=== PATIENT | female | born 1940 | race Caucasian/White ===

== ENCOUNTER 2021-08-22 21:14 | Emergency (ER) | payer MEDICARE, OTHER ==
[~2021-08-22 21:14] MED LIST: ADULT ASPIRIN R81 MG PO; DIOVAN HCT 1601 EAC1 PO; ELIQUIS2.5 MG PO; ISOSORBIDE DINI20 M1 PO; LOPRESSOR25 MG PO; NORVASC2.5 MG PO; NORVASC5 MG PO; PREDNISONE 20MG20 MG PO; PROTONIX 40MG T40 MG PO; SYNTHROID100 MCG PO; TENORMIN50 MG PO
[2021-08-22 21:38] LABS: BASOPHIL 0.4 % (0-2); EOSINOPHIL 0.7 % (0-7); HCT 41.4 % (37.0-47.0); HGB 12.9 g/dl (12.5-16.0); LYMPHOCYTE 25.2 % (15-48); MCH 26.3 pg (25.0-31.0); MCHC 31.2 g/dL (32.0-36.0); MCV 84.5 fL (78.0-100.0); MONOCYTE 8.2 % (0-12); MPV 11.4 fL (6.0-9.5); NEUTROPHIL 65.2 % (41-80); NRBC 0; PLT 215 K/uL (150-400); RDW 14.5 % (11.5-14.0); WBC 10.9 K/uL (4.0-10.5)
[2021-08-22 21:56] LABS: BILIRUBIN - TOTAL 1.3 mg/dL (0.2-1.0); BUN/CREAT RATIO (CALC) 23.3 RATIO; CREATININE 1.2 mg/dL (0.51-0.95); GLOBULIN (CALCULATION) 3.8 g/dL; POTASSIUM 4.1 mmol/L (3.5-5.1); TOTAL PROTEIN 7.8 g/dL (6.4-8.2)
== END 2021-08-23 01:21 | disposition home or self-care (01) ==
LOC: FER 21:14
PROVIDERS: Emergency Medicine
DX: K21.9 Gastro-esophageal reflux disease without esophagitis (principal); R07.89 Other chest pain; I10 Essential (primary) hypertension; Z88.0 Allergy status to penicillin; Z88.2 Allergy status to sulfonamides; Z91.048 Other nonmedicinal substance allergy status
CPT/HCPCS: 36415; 71045; 80053; 83735; 84484; 85025; 93005

== ENCOUNTER 2021-11-27 12:50 | Emergency (ER) | payer MEDICARE, OTHER ==
[2021-11-27] MEDS ORDERED: NORCO 5-325 TA1 EACH PO (16:43)
[2021-11-27] MEDS ORDERED: ONDANSETRON ODT4 MG PO (16:59)
== END 2021-11-27 17:14 | disposition home or self-care (01) ==
LOC: FER 12:50
DX: S22.089A Unspecified fracture of T11-T12 vertebra, initial encounter for closed fracture (principal); S00.03XA Contusion of scalp, initial encounter; Z88.0 Allergy status to penicillin; Z88.2 Allergy status to sulfonamides; W01.198A Fall on same level from slipping, tripping and stumbling with subsequent striking against other object, initial encounter
CPT/HCPCS: 70450; 72125; 72128; 72131

== ENCOUNTER 2021-11-30 16:43 | Emergency (ER) | payer MEDICARE, OTHER ==
[~2021-11-30 16:43] MED LIST changes: +NORCO 5-325 TA1 EACH PO; +ONDANSETRON ODT4 MG PO
[2021-11-30 17:32] LABS: BASOPHIL 0.3 % (0-2); EOSINOPHIL 0.5 % (0-7); HCT 42.6 % (37.0-47.0); HGB 13.7 g/dl (12.5-16.0); LYMPHOCYTE 16.4 % (15-48); MCH 27.3 pg (25.0-31.0); MCHC 32.2 g/dL (32.0-36.0); MCV 84.9 fL (78.0-100.0); MONOCYTE 9.6 % (0-12); MPV 12.3 fL (6.0-9.5); NEUTROPHIL 72.3 % (41-80); NRBC 0; PLT 220 K/uL (150-400); RBC 5.02 M/uL (4.20-5.40); RDW 13.3 % (11.5-14.0)
[2021-11-30 17:37] LABS: INR 1.29 (0.9-1.2); PROTHROMBIN TIME 15.4 SECONDS (11.8-13.4); PTT 36.5 SECONDS (24.4-34.7)
[2021-11-30 17:51] LABS: LACTIC ACID 1.6 mmol/L (0.4-1.9)
[2021-11-30 17:55] LABS: ALBUMIN 3.7 g/dL (3.4-5.0); BILIRUBIN - TOTAL 0.7 mg/dL (0.2-1.0); CREATININE 0.92 mg/dL (0.51-0.95); FT4 (FREE T4) 1.2 ng/dL (0.76-1.46); GLOBULIN (CALCULATION) 4.1 g/dL; MAGNESIUM 1.9 mg/dL (1.8-2.4); POTASSIUM 3.7 mmol/L (3.5-5.1); TOTAL PROTEIN 7.8 g/dL (6.4-8.2)
== END 2021-11-30 19:42 | disposition home or self-care (01) ==
LOC: FER 16:43
PROVIDERS: Emergency Medicine
DX: I48.0 Paroxysmal atrial fibrillation (principal); Z20.822 Contact with and (suspected) exposure to COVID-19; Z88.0 Allergy status to penicillin; Z88.2 Allergy status to sulfonamides
CPT/HCPCS: 36415; 71045; 80053; 83605; 83735; 83880; 84439; 84443; 84484; 85025; 85610; 85730; 93005; U0002

== ENCOUNTER 2022-03-07 15:57 | Emergency (ER) | payer MEDICARE, OTHER ==
[2022-03-07 16:56] LABS: BASOPHIL 0.5 % (0-2); EOSINOPHIL 1.6 % (0-7); HCT 40.5 % (37.0-47.0); HGB 12.7 g/dl (12.5-16.0); LYMPHOCYTE 27.4 % (15-48); MCH 27.2 pg (25.0-31.0); MCHC 31.4 g/dL (32.0-36.0); MCV 86.7 fL (78.0-100.0); MONOCYTE 9.8 % (0-12); MPV 11.4 fL (6.0-9.5); NEUTROPHIL 60.3 % (41-80); NRBC 0; PLT 205 K/uL (150-400); RBC 4.67 M/uL (4.20-5.40); RDW 13.6 % (11.5-14.0); WBC 10.5 K/uL (4.0-10.5)
[2022-03-07 17:22] LABS: ALBUMIN 3.8 g/dL (3.4-5.0); BILIRUBIN - TOTAL 0.3 mg/dL (0.2-1.0); BUN/CREAT RATIO (CALC) 14.7 RATIO; CREATININE 1.43 mg/dL (0.51-0.95); GLOBULIN (CALCULATION) 3.9 g/dL; POTASSIUM 4.1 mmol/L (3.5-5.1); TOTAL PROTEIN 7.7 g/dL (6.4-8.2)
[2022-03-07 17:25] LABS: BILIRUBIN NEGATIVE (NEGATIVE); BLOOD NEGATIVE Ery/uL (NEGATIVE); COLOR YELLOW (YELLOW); GLUCOSE (U) NORMAL (NORMAL); LEUKOCYTES 1+ Leu/uL (NEGATIVE); NITRITE NEGATIVE (NEGATIVE); PROTEIN NEGATIVE (NEGATIVE); UROBILINOGEN 0.2 mg/dL (0.2-1.0)
[2022-03-07 17:25] LABS: CKMB <0.5 ng/mL (0.0-3.6); PRO-BNP 1077 pg/mL (<450)
[2022-03-07 17:26] LABS: CLARITY SLIGHTLY HAZY (CLEAR)
[2022-03-07 17:36] LABS: BACTERIA TRACE; URINARY RBC RARE
== END 2022-03-07 18:31 | disposition home or self-care (01) ==
LOC: FER 15:57
PROVIDERS: Emergency Medicine
DX: R55 Syncope and collapse (principal); K21.9 Gastro-esophageal reflux disease without esophagitis; Z88.2 Allergy status to sulfonamides; Z88.0 Allergy status to penicillin; Z79.899 Other long term (current) drug therapy
CPT/HCPCS: 36415; 71045; 80053; 81001; 82553; 83880; 84443; 84484; 85025; 93005

== ENCOUNTER 2022-03-17 04:32 | Emergency (ER) | payer MEDICARE, OTHER ==
[~2022-03-17] VITALS: Ht 160 cm; Wt 65.8 kg
[2022-03-17 05:01] LABS: BASOPHIL 0.2 % (0-2); EOSINOPHIL 3.1 % (0-7); HCT 43.4 % (37.0-47.0); HGB 13.5 g/dl (12.5-16.0); LYMPHOCYTE 29.3 % (15-48); MCHC 31.1 g/dL (32.0-36.0); MCV 86.8 fL (78.0-100.0); MONOCYTE 9.5 % (0-12); MPV 11.9 fL (6.0-9.5); NEUTROPHIL 57.5 % (41-80); NRBC 0; PLT 224 K/uL (150-400); RDW 13.2 % (11.5-14.0); WBC 12.7 K/uL (4.0-10.5)
[2022-03-17 05:32] LABS: BILIRUBIN - TOTAL 0.4 mg/dL (0.2-1.0); BUN/CREAT RATIO (CALC) 22.2 RATIO; CREATININE 1.08 mg/dL (0.51-0.95); POTASSIUM 3.8 mmol/L (3.5-5.1)
[2022-03-17 05:40] LABS: LACTIC ACID 1.3 mmol/L (0.4-1.9)
[2022-03-17 05:40] LABS: CORONAVIRUS 2019 SARS-COV-2 NEGATIVE (NEGATIVE); INFLUENZA A NAA NEGATIVE (NEGATIVE)
== END 2022-03-17 22:15 | disposition other institution (70) ==
LOC: FER 04:32
PROVIDERS: Emergency Medicine
DX: I49.5 Sick sinus syndrome (principal); J18.9 Pneumonia, unspecified organism; I48.91 Unspecified atrial fibrillation; I10 Essential (primary) hypertension; Z87.891 Personal history of nicotine dependence; Z88.0 Allergy status to penicillin; Z88.2 Allergy status to sulfonamides; Z79.82 Long term (current) use of aspirin; Z79.01 Long term (current) use of anticoagulants; Z79.899 Other long term (current) drug therapy; Z20.822 Contact with and (suspected) exposure to COVID-19
CPT/HCPCS: 36415; 71045; 80053; 83605; 83735; 84484; 85025; 87040; 93005; J0282; J0692; J3475; J7030; J7050; U0002

== ENCOUNTER 2022-03-26 09:10 | Emergency (ER) | payer MEDICARE, OTHER ==
[2022-03-26 10:00] LABS: BASOPHIL 0.3 % (0-2); HCT 40.7 % (37.0-47.0); HGB 12.6 g/dl (12.5-16.0); LYMPHOCYTE 20.6 % (15-48); MCH 26.8 pg (25.0-31.0); MCV 86.4 fL (78.0-100.0); MONOCYTE 6.5 % (0-12); MPV 11.9 fL (6.0-9.5); NEUTROPHIL 70.9 % (41-80); NRBC 0; PLT 230 K/uL (150-400); RBC 4.71 M/uL (4.20-5.40); RDW 13.2 % (11.5-14.0); WBC 11.5 K/uL (4.0-10.5)
[2022-03-26 10:07] LABS: ALBUMIN 3.3 g/dL (3.4-5.0); BILIRUBIN - TOTAL 0.5 mg/dL (0.2-1.0); BUN/CREAT RATIO (CALC) 14.5 RATIO; CREATININE 0.83 mg/dL (0.51-0.95); GLOBULIN (CALCULATION) 3.8 g/dL; MAGNESIUM 1.9 mg/dL (1.8-2.4); POTASSIUM 3.8 mmol/L (3.5-5.1); TOTAL PROTEIN 7.1 g/dL (6.4-8.2)
[2022-03-26 10:50] LABS: BILIRUBIN NEGATIVE (NEGATIVE); BLOOD NEGATIVE Ery/uL (NEGATIVE); CLARITY CLEAR (CLEAR); COLOR YELLOW (YELLOW); GLUCOSE (U) NORMAL (NORMAL); LEUKOCYTES NEGATIVE Leu/uL (NEGATIVE); NITRITE NEGATIVE (NEGATIVE); PROTEIN NEGATIVE (NEGATIVE); SPECIFIC GRAVITY 1.015 (1.001-1.030); UROBILINOGEN 0.2 mg/dL (0.2-1.0); pH 6.5 (5.0-9.0)
== END 2022-03-26 17:02 | disposition home or self-care (01) ==
LOC: FER 09:10
PROVIDERS: Emergency Medicine
DX: I95.1 Orthostatic hypotension (principal); I10 Essential (primary) hypertension; Z88.0 Allergy status to penicillin; Z88.2 Allergy status to sulfonamides
CPT/HCPCS: 36415; 71045; 80053; 81003; 83735; 85025; 93005